=== PATIENT | female | born 1960 | race Caucasian/White ===

== ENCOUNTER 2016-10-21 07:11 | Inpatient (IN) ==
--- NOTE | 2016-10-18 22:29 | Discharge Summary ---
<Aleah Gaspar - Last Filed: 10/21/16 13:12> - Discharge Diagnosis (1) Arthritis of knee, right Priority: Primary Status: Acute (2) Asthma Status: Chronic Qualifiers: Asthma severity: unspecified severity Asthma complication type: uncomplicated Qualified Code(s): J45.909 - Unspecified asthma, uncomplicated (3) Hypertension Status: Chronic Qualifiers: Hypertension type: unspecified secondary hypertension Qualified Code(s): I15.9 - Secondary hypertension, unspecified; I15 - Secondary hypertension (4) Obesity (BMI 30.0-34.9) Status: Chronic (5) Tobacco abuse Status: Chronic - Discharge Medications Prescriptions: OxyCODONE Immed Rel [Roxicodone 5 MG] 5 - 10 mg PO Q6HR PRN #40 tablet PRN Reason: Pain Enoxaparin [Lovenox] 30 mg SQ Q12HR #20 syr Home Medications: Enoxaparin [Lovenox] 30 mg SQ Q12HR #20 syr 10/21/16 [Rx] Esomeprazole Magnesium [Nexium] 20 mg PO DAILY 10/21/16 [History] Losartan [Cozaar] 25 mg PO DAILY 10/21/16 [History] OxyCODONE Immed Rel [Roxicodone 5 MG] 5 - 10 mg PO Q6HR PRN #40 tablet 10/21/16 [Rx] Ranitidine HCl [Zantac] 150 mg PO HS 10/21/16 [History] Tizanidine HCl 2 mg PO DAILY 10/21/16 [History] Allergies/Adverse Reactions: Allergies aspirin Allergy (Verified 10/21/16 08:21) Swelling of Lip/Tongue/Throat ibuprofen [From Motrin] Allergy (Verified 10/21/16 08:21) Swelling of Lip/Tongue/Throat levofloxacin [From Levaquin] Adverse Reaction (Verified 10/21/16 08:21) See Comments rash at IV site Primary care physician: PCP NO - Patient Status Disposition: Home, Self-Care Condition: Good - Discharge Instructions Follow Up With: NO,PCP [Primary Care Provider] - - Hospital Course Hospital course: Ms. Dumont is a 56 year old female - Time Spent with Patient Total time spent providing and/or coordinating discharge services: <Camacho Lo - Last Filed: 10/23/16 06:32> Date of Encounter: 10/23/16 Time of Encounter: 06:31 - Discharge Diagnosis (1) Arthritis of knee, right Priority: Primary Status: Acute (2) Hypertension Priority: Secondary Status: Chronic Qualifiers: Qualified Code(s): I15.9 - Secondary hypertension, unspecified; I15 - Secondary hypertension (3) Tobacco abuse Priority: Secondary Status: Chronic (4) Asthma Priority: Secondary Status: Chronic Qualifiers: Qualified Code(s): J45.909 - Unspecified asthma, uncomplicated (5) Obesity (BMI 30.0-34.9) Priority: Secondary Status: Chronic (6) Acute blood loss anemia Priority: Primary Status: Acute Primary care physician: PCP NO - Patient Status Functional capacity at discharge: uses cane/walker Overall status at discharge: patient is progressing back to baseline - Hospital Course Hospital course: Ms. Dumont is a 56 year old female The patient had an uneventful postoperative course. They received antibiotics and physical therapy and were discharged in stable condition. There will follow -up in the office in 2 weeks. Asymptomatic acute blood loss anemia, discharged - Time Spent with Patient Total time spent providing and/or coordinating discharge services:
[2016-10-21] MEDS ORDERED: Albuterol 2.5 MG/3 ML NEBULIZER ONE (08:03)
[2016-10-21] MEDS ORDERED: Albuterol 2.5 MG/3 ML NEBULIZER IH ONE (08:16)
[2016-10-21] MEDS ORDERED: Lidocaine 1% 20 ML MDV ID ONE (08:16)
[2016-10-21] MEDS ORDERED: CeFAZolin Pre 2,000 MG/100 ML 2,000 MG/100 ML BAG IVPB ONE (08:16)
[2016-10-21] MEDS ORDERED: *HR* Propofol 200 MG/20 ML VIAL IVP ONE ×2 (08:19→08:34)
[2016-10-21] MEDS ORDERED: *HR* FentaNYL (PF) 100 MCG/2 ML VIAL ONE (08:19)
[2016-10-21] MEDS ORDERED: *HR* Midazolam HCl 2 MG/2 ML VIAL ONE (08:19)
[2016-10-21] MEDS ORDERED: Lidocaine -MPF 2% 2 ML VIAL ONE (08:21)
[2016-10-21] MEDS ORDERED: Ondansetron 4 MG/2 ML VIAL ONE (08:21)
[2016-10-21] MEDS ORDERED: Dexamethasone 4 MG/ML VIAL ONE (08:21)
--- NOTE | 2016-10-21 08:24 | Anesthesia Evaluation PreOp ---
Date of Encounter: 10/21/16 Time of Encounter: 08:21 - Past History Planned Operation: r tka Cardiac History: HTN Pulmonary History: Smoker, Asthma [employer] History: Denies Any Significant HX Other Medical History: GERD Anesthesia History: No Prior Anesthetic Complications, Past Anesthesia (gastric bypass, cholecyst, thyroid, hysterect) Alcohol Use: none Drug use: marijuana Medications and Allergies Esomeprazole Magnesium [Nexium] 40 mg PO DAILY 10/21/16 [History] HYDROcodone/Acet 5/325 mg [[place] 5-325 mg] 1 tab PO BID PRN 10/21/16 [History] Losartan [Cozaar] 25 mg PO DAILY 10/21/16 [History] Ranitidine HCl [Zantac] 150 mg PO HS 10/21/16 [History] Tizanidine HCl 4 mg PO DAILY 10/21/16 [History] Allergies aspirin Allergy (Verified 10/21/16 08:21) Swelling of Lip/Tongue/Throat ibuprofen [From Motrin] Allergy (Verified 10/21/16 08:21) Swelling of Lip/Tongue/Throat levofloxacin [From Levaquin] Adverse Reaction (Verified 10/21/16 08:21) See Comments rash at IV site - Meds/Allergy Pre-op Review Medications Reviewed: Yes Allergies Reviewed: Yes Beta Blockers on Current Med List: No Anesthesia Results - Labs Laboratory Tests 10/13/16 10/13/16 10/13/16 09:45 09:45 09:45 Hgb 12.5 Hct 38.0 Plt Count 350 PT 9.7 INR 0.9 APTT 30.6 Sodium 139 Potassium 4.6 H Creatinine 0.71 - Imaging EKG: report reviewed (sr [id number]) Anesthesia Exam O2 Sat Height 1.78 m Height 1.78 m Weight 105.233 kg Weight 105.233 kg O2 Sat by Pulse Oximetry 97 Vital Signs Temp Pulse Resp BP Pulse Ox 98.6 F 68 18 130/78 97 10/21/16 07:36 10/21/16 07:36 10/21/16 07:36 10/21/16 07:36 10/21/16 07:36 Height: 1.78 Weight: 105 NPO (# of Hours): >8 - HEENT Pupil (Motor): Pupils equal, EOMI Mallampati: II Teeth: Poor dentition Oral Opening: Greater than 3 - [employer] LOC: Oriented [employer] Motor: Normal RUE, Normal LUE, Normal RLE, Normal LLE, Normal Face [employer] Sensory: Normal: RUE, LUE, RLE, LLE, Face - Cardiac Rhythm: Regular Murmur: None - Pulmonary Breath Sounds: bilateral Clear Respiratory Effort: Symmetrical Anesthesia Assess/Plan ASA Score: 2 Modified Karey Scale for Level of Consciousness: Cooperative, oriented, and tranquil Anesthetic Plan: General, Regional Monitoring Plan: Standard Monitors Recovery Plan: PACU
[2016-10-21] MEDS ORDERED: Ringers Solution, Lactated 1,000 ML IVC SCH ×2 (08:30→12:50)
[2016-10-21] MEDS ORDERED: Bupivacaine/Clonidine Syringe 1 EACH SYRINGE ONE (08:42)
--- NOTE | 2016-10-21 08:46 | History & Physical Report ---
Date of Encounter: 10/21/16 Time of Encounter: 08:46 24 Hour HP Update - Instructions Instructions: If the History and Physical is less than 30 days old and was completed prior to A.M. admission and or procedure and has NOT been updated on calendar day of procedure please complete this update prior to performing procedure. - Update Patient reports changes in Medical Condition: No Changes in assessment/condition: No Changes in Medication: No Preop tests/diagnostics Reviewed: Yes Surgery Remains Indicated: Yes Consent for Planned Operative Procedure(s) Verified: Yes - Pre-Operative Checklist Preoperative Checklist Indicated: No Prophylactic Antibiotic Ordered: Yes Is VTE Prophylaxis Indicated?: Yes
--- NOTE | 2016-10-21 09:22 | Anesthesia Procedures ---
Date of Encounter: 10/21/16 Time of Encounter: 09:10 Procedures: Anesthesia - Nerve Block Procedure Date: 10/21/16 Time: 09:10 Allergies/Adv Reactions: Allergies Allergy/AdvReac Type Severity Reaction Status Date / Time aspirin Allergy Swelling Verified 10/21/16 08:21 of Lip/Tongue/Throat ibuprofen [From Motrin] Allergy Swelling Verified 10/21/16 08:21 of Lip/Tongue/Throat levofloxacin [From Levaquin] AdvReac See Verified 10/21/16 08:21 Comments Pre-op Diagnosis: Right Knee Arthritis Surgical Procedure: Right Total Knee Replacement Checklist: Correct Patient Identifier, Correct procedure, History checked Correct side: Right Blood Thinner: No Monitor Applied: EKG, BP, Pulse Oximetry Supplemental Oxygen via Nasal Cannula (L/min): 2 Sedation: Versed (mg): 2 Sedation: Fentanyl (mcg): 100 Indication: Post Op Analgesia Pre-op Neuro Deficits: No Block Type: Femoral Catheter placed: No Sterile Technique: Yes Ultrasound used: Yes Anatomy identified: Yes Visual spread of Local: Yes Neuro Stimulation: Yes Nerve Stimulator Range: 0.2 - 0.4 mA Blood on Needle Aspiration: No Smooth Injection of Local: Yes Pain with Injection of Local: No Prep: Chlorhexadine Needle: 22 x 50 mm Stimuplex Local: 0.25% Bupivicaine w/Clonidine 20 mcg/cc Volume (cc): 40mL Number of Attempts: 1 Complications: None/effective block Vitals: See nursing documentation. VSS throughout. Patient tolerated procedure well. Comments: Verbal order Dr Lo for post op pain management.
[2016-10-21] MEDS ORDERED: Naloxone 0.4 MG/ML INJ IVP PRN ×2 (09:24→12:50)
[2016-10-21] MEDS ORDERED: *HR* Meperidine 25 MG/ML SYRINGE IVP PRN (09:24)
[2016-10-21] MEDS ORDERED: *HR* Promethazine 25 MG/ML VIAL IVP PRN (09:24)
[2016-10-21] MEDS ORDERED: Ondansetron 4 MG/2 ML VIAL IVP PRN ×2 (09:24→12:50)
[2016-10-21] MEDS ORDERED: *HR* HYDROmorphone 2 MG/ML SYRINGE ONE (10:36)
[2016-10-21] MEDS: *HR* HYDROmorphone (PF) 1 MG/ML SYRINGE IVP PRN ×6 (10:52→23:56)
--- NOTE | 2016-10-21 11:10 | Orthopedic Operative Note ---
Date of procedure: 10/21/16 Pre-op diagnosis: Right knee arthritis Post-op diagnosis: same Procedure: Procedure: Right Total knee replacement Estimated blood loss: 400 cc Hardware: Arthrex Femur: 7 Tibia: 6 PS insert: 14 Patella:40 Exam Under anesthesia: Full Motion and no instability Procedural Notes: Grade 4 arthritic changes medial 3 arthritic changes patellofemoral joint Operative procedure: The patient was brought to the operating room and placed on the operating room table. After general anesthesia was administered the operative knee was examined. Findings were noted in the exam under anesthesia. The operative extremity was prepped and draped in sterile surgical fashion. The patient received IV antibiotics prior to skin incision. A standard midline incision was made centered over the patella. The incision was made through the skin and subcutaneous tissue. A medial parapatellar tendon approach was performed. Care was taken to preserve tissue along the medial aspect of the patella. And to protect the patella tendon. The deep MCL was released off the medial tibia. The infra patella fat pad was excised. Knee was brought into flexion. Patient was noted to have grade 4 arthritic changes medial compartment grade 3 arthritic changes at the femoral joint. The entry hole was made for the intramedullary femoral guide. The guide was seated in 6 degrees of valgus. Anterior cut was made followed by the distal cut. The ACL the PCL the medial and the lateral menisci were excised. The tibia was subluxed forward. The entry hole was made for the intramedullary tibial guide. Guide was seated to resect 2 mm off the more abnormal side. The knee was brought into flexion the distal femur was sized 7. The femoral guide was seated , the anterior cut was made followed by the posterior condylar cut, followed by the chamfer cuts. The finishing guide was seated the box cut was made and the lug holes were drilled. The tibia was sized 6, the tibial tray was seated and prepared with the large drill followed by the fin cutter. Trial reduction revealed full extension no varus valgus instability with the appropriate 14 PS Aminta. The patella was everted and cut was made at the level of the insertion of the quadriceps and patella tendon. The patella was sized 40 the guide was seated and the lug holes are drilled. Trial reduction revealed excellent patella tracking. All trial components were removed all bony surfaces were irrigated. The tibia was cemented first followed by the femur. The 14 PS Aminta was seated and the knee was brought into full extension. The patella was cemented and held in place with the patellar holding clamp. After the cement had hardened, the knee sat for 2 minutes with a Betadine saline solution. The knee was then irrigated out with 2 L of pulse irrigation. The extensor mechanism was closed with #2 FiberWire suture and #2 PDS suture. The subcutaneous tissue was then irrigated and closed deep with #1 PDS suture superficially with 0 PDS suture and skin was closed with skin nadya. The patient was then placed in a sterile dressing and a postoperative brace extubated and transferred to recovery room in stable condition. Anesthesia: ANJELICA Surgeon: Camacho Lo Pizzamaker: Aleah Gaspar Condition: stable Disposition: PACU
[2016-10-21] MEDS ORDERED: Acetaminophen IV 1,000 MG/100 ML INFUS..BTL IVPB ONE (11:20)
[2016-10-21] MEDS ORDERED: *HR* Morphine 2 MG/ML SYRINGE IVP PRN (11:30)
[2016-10-21] MEDS: *HR* Morphine 2 MG/ML SYRINGE IVP PRN ×2 (12:01→12:06)
--- NOTE | 2016-10-21 12:32 | Anesthesia Evaluation Post Op ---
Date of Encounter: 10/21/16 Time of Encounter: 12:31 - Vital Signs Vital Signs: Vital Signs/O2 Sat/Glucose, Most Current Temp Pulse Resp BP Pulse Ox 10/21/16 12:15 97.2 F L 78 18 112/67 100 10/21/16 12:05 75 18 121/86 100 10/21/16 11:55 74 18 118/87 100 10/21/16 11:45 97.2 F L 72 18 107/63 100 10/21/16 11:35 73 18 118/76 100 10/21/16 11:25 67 18 117/85 100 10/21/16 11:15 97.2 F L 67 18 117/75 100 10/21/16 11:05 79 16 109/66 100 10/21/16 10:55 96 16 112/86 100 10/21/16 10:45 97.3 F L 90 16 111/89 99 10/21/16 09:30 68 16 112/79 98 10/21/16 09:15 74 16 120/80 99 10/21/16 09:00 75 16 116/80 97 - Lungs Lungs: Clear Ascult./Percussion - Airway Airway: Non-obstructed - Cardiovascular Regular Rate - Mental Status Mental Status: Alert & Oriented, Answers Appropriately - Pain Pain Scale: 2 Pain Scale used: [place] (Faces) - Nausea Vomiting Nausea Vomiting: Not Present - Hydration Hydration: Ice chips - Discharge PostOp Status: Transfer Patient to floor
[2016-10-21] MEDS ORDERED: MOM Conc 10 ML UD.LIQ PO PRN (12:50)
[2016-10-21] MEDS ORDERED: *HR* OxyCODONE Immed Rel 5 MG TABLET PO PRN (12:50)
[2016-10-21] MEDS ORDERED: Sennosides 8.6 MG TABLET PO PRN (12:50)
[2016-10-21] MEDS ORDERED: Temazepam 15 MG CAPSULE PO PRN (12:50)
[2016-10-21] MEDS: ceFAZolin 2,000 MG in D5% in Water 100 ML IVPB SCH ×2 (16:46→23:45)
[2016-10-21] MEDS: *HR* OxyCODONE Immed Rel 5 MG TABLET PO PRN ×2 (16:53→20:56)
[2016-10-21] MEDS: *HR* Enoxaparin 30 MG/0.3 ML SYRINGE SQ SCH (16:53)
[2016-10-21] MEDS ORDERED: *HR* Enoxaparin 30 MG/0.3 ML SYRINGE SQ SCH (18:00)
[2016-10-21] MEDS: Famotidine 20 MG TABLET PO SCH (20:56)
[2016-10-22] MEDS: *HR* Enoxaparin 30 MG/0.3 ML SYRINGE SQ SCH ×2 (05:09→17:51)
[2016-10-22] MEDS: *HR* OxyCODONE Immed Rel 5 MG TABLET PO PRN ×5 (05:10→21:55)
[2016-10-22 06:01] LABS: Hematocrit 27.7 % (35.3-44.9); Hemoglobin 9.1 g/dL (11.5-15.4)
[2016-10-22] MEDS: *HR* HYDROmorphone (PF) 1 MG/ML SYRINGE IVP PRN ×4 (06:11→20:12)
[2016-10-22 06:49] LABS: BUN/Creatinine Ratio 14 (6-26); Blood Urea Nitrogen 9 mg/dL (7-20); Calcium 8.5 mg/dL (8.6-10.8); Carbon Dioxide 22 mEq/L (19-29); Chloride 105 mEq/L (98-109); Glucose 119 mg/dL (70-99); Osmolality,Calculated 280 (280-300); Potassium 3.9 mEq/L (3.5-4.5); Sodium 135 mEq/L (136-145); eGFR For African Americans > 60 (> 60); eGFR For Non-African Americans > 60 (> 60)
--- NOTE | 2016-10-22 08:11 | Orthopedics Progress Note ---
Date of Encounter: 10/22/16 Time of Encounter: 08:10 - Assessment and Plan (1) Arthritis of knee, right Current Visit: Yes Status: Acute (2) Hypertension Current Visit: Yes Status: Chronic Qualifiers: Qualified Code(s): I15.9 - Secondary hypertension, unspecified; I15 - Secondary hypertension (3) Tobacco abuse Current Visit: Yes Status: Chronic (4) Asthma Current Visit: Yes Status: Chronic Qualifiers: Qualified Code(s): J45.909 - Unspecified asthma, uncomplicated (5) Obesity (BMI 30.0-34.9) Current Visit: Yes Status: Chronic (6) Acute blood loss anemia Current Visit: Yes Status: Acute Subjective Interval history: Patient was seen this morning doing well without complaints. Afebrile vital signs stable. Operative extremity: Neurovascularly intact Dressing clean dry and intact Calves nontender Assessment and plan: Continue with postoperative care hb 9.1 Objective Vital signs: Vital Signs Temp Pulse Resp BP Pulse Ox 10/22/16 07:05 99 F 81 13 94/63 97 10/22/16 06:56 98 F 91 16 114/76 99 10/22/16 06:07 98.1 F 84 14 118/72 99 10/22/16 00:05 98.1 F 80 17 124/75 100 10/21/16 23:54 105/74 10/21/16 20:00 98.6 F 87 17 138/91 97 10/21/16 14:06 98.3 F 82 16 110/79 97 10/21/16 13:36 98.6 F 75 16 110/81 96 10/21/16 13:00 94 L 10/21/16 12:53 98.3 F 76 14 120/80 98 10/21/16 12:35 97.2 F L 69 18 112/78 99 10/21/16 12:25 78 18 111/79 99 10/21/16 12:15 97.2 F L 78 18 112/67 100 10/21/16 12:05 75 18 121/86 100 10/21/16 11:55 74 18 118/87 100 10/21/16 11:45 97.2 F L 72 18 107/63 100 10/21/16 11:35 73 18 118/76 100 10/21/16 11:25 67 18 117/85 100 10/21/16 11:15 97.2 F L 67 18 117/75 100 10/21/16 11:05 79 16 109/66 100 10/21/16 10:55 96 16 112/86 100 10/21/16 10:45 97.3 F L 90 16 111/89 99 10/21/16 09:30 68 16 112/79 98 10/21/16 09:15 74 16 120/80 99 10/21/16 09:00 75 16 116/80 97 10/21/16 08:25 98.6 F 68 18 130/78 97 Intake and Output 10/21/16 10/22/16 10/22/16 23:59 07:59 15:59 Intake Total 400 / 400 Output Total 1000 / 1000 Balance -600 / -600 Intake: IV Fluids 100 / 100 Ancef 2,000 MG In 100 / 100 Dextrose 5% 100 ML @ 200 mls/hr IVPB Q8HR [facility] Rx#: [id number] Oral 300 / 300 Output: Urine 1000 / 1000 - Labs CBC & BMP: 10/22/16 04:20 10/22/16 04:20 Labs: Abnormal lab results Hgb 9.1 g/dL (11.5-15.4) L 10/22/16 04:20 Hct 27.7 % (35.3-44.9) L 10/22/16 04:20 Sodium 135 mEq/L (136-145) L 10/22/16 04:20 Glucose 119 mg/dL (70-99) H 10/22/16 04:20 Calcium 8.5 mg/dL (8.6-10.8) L 10/22/16 04:20 - VTE Documentation of Mechanical Device: Venous foot pump, device Consult Discharge Plan - Plan Referrals: NO,PCP [Primary Care Provider] - Prescriptions: Enoxaparin [Lovenox] 30 mg SQ Q12HR #20 syr OxyCODONE Immed Rel [Roxicodone 5 MG] 5 - 10 mg PO Q6HR PRN #40 tablet PRN Reason: Pain
[2016-10-22] MEDS ORDERED: tiZANidine 4 MG TABLET PO SCH (09:00)
[2016-10-22] MEDS: Acetaminophen 325 MG TABLET PO PRN (19:05)
[2016-10-22] MEDS ORDERED: Acetaminophen IV 1,000 MG/100 ML INFUS..BTL IVPB PRN (19:42)
[2016-10-22] MEDS: Famotidine 20 MG TABLET PO SCH (20:11)
[2016-10-22] MEDS: Gabapentin 300 MG CAPSULE PO SCH (21:01)
[2016-10-23] MEDS: *HR* OxyCODONE Immed Rel 5 MG TABLET PO PRN ×5 (03:56→22:23)
[2016-10-23 05:05] LABS: Hematocrit 26.8 % (35.3-44.9); Hemoglobin 8.6 g/dL (11.5-15.4)
[2016-10-23 05:22] LABS: BUN/Creatinine Ratio 13 (6-26); Blood Urea Nitrogen 9 mg/dL (7-20); Calcium 8.7 mg/dL (8.6-10.8); Carbon Dioxide 25 mEq/L (19-29); Chloride 105 mEq/L (98-109); Glucose 111 mg/dL (70-99); Osmolality,Calculated 283 (280-300); Sodium 137 mEq/L (136-145); eGFR For African Americans > 60 (> 60); eGFR For Non-African Americans > 60 (> 60)
[2016-10-23 05:24] LABS: Potassium 5.1 mEq/L (3.5-4.5)
--- NOTE | 2016-10-23 06:32 | Orthopedics Progress Note ---
Date of Encounter: 10/23/16 Time of Encounter: 06:32 - Assessment and Plan (1) Arthritis of knee, right Current Visit: Yes Status: Acute (2) Hypertension Current Visit: Yes Status: Chronic Qualifiers: Qualified Code(s): I15.9 - Secondary hypertension, unspecified; I15 - Secondary hypertension (3) Tobacco abuse Current Visit: Yes Status: Chronic (4) Asthma Current Visit: Yes Status: Chronic Qualifiers: Qualified Code(s): J45.909 - Unspecified asthma, uncomplicated (5) Obesity (BMI 30.0-34.9) Current Visit: Yes Status: Chronic (6) Acute blood loss anemia Current Visit: Yes Status: Acute Subjective Interval history: Patient was seen this morning doing well without complaints. Afebrile vital signs stable. Operative extremity: Neurovascularly intact Dressing clean dry and intact Calves nontender Assessment and plan: Continue with postoperative care hct 26 asymptomatic, discharged today Objective Vital signs: Vital Signs Temp Pulse Resp BP Pulse Ox 10/23/16 00:00 98.9 F 90 17 135/75 96 10/22/16 20:00 99.0 F 107 18 156/91 97 10/22/16 14:51 98.3 F 87 16 98/67 97 10/22/16 11:14 98.1 F 81 18 93/64 96 10/22/16 07:05 99 F 81 13 94/63 97 10/22/16 06:56 98 F 91 16 114/76 99 Intake and Output 10/22/16 10/22/16 10/23/16 15:59 23:59 07:59 Intake Total 750 / 750 400 / 400 Output Total 750 / 750 450 / 450 550 / 550 Balance 0 / 0 -450 / -450 -150 / -150 Intake: Oral 750 / 750 400 / 400 Output: Urine 750 / 750 450 / 450 550 / 550 - Labs CBC & BMP: 10/23/16 04:20 10/23/16 04:20 Labs: Abnormal lab results Hgb 8.6 g/dL (11.5-15.4) L 10/23/16 04:20 Hct 26.8 % (35.3-44.9) L 10/23/16 04:20 Potassium 5.1 mEq/L (3.5-4.5) H D 10/23/16 04:20 Glucose 111 mg/dL (70-99) H 10/23/16 04:20 - VTE Documentation of Mechanical Device: Venous foot pump, device Consult Discharge Plan - Plan Referrals: NO,PCP [Primary Care Provider] - Prescriptions: Enoxaparin [Lovenox] 30 mg SQ Q12HR #20 syr OxyCODONE Immed Rel [Roxicodone 5 MG] 5 - 10 mg PO Q6HR PRN #40 tablet PRN Reason: Pain
[2016-10-23] MEDS: *HR* Enoxaparin 30 MG/0.3 ML SYRINGE SQ SCH ×2 (06:39→17:55)
[2016-10-23] MEDS: *HR* HYDROmorphone (PF) 1 MG/ML SYRINGE IVP PRN ×4 (09:28→23:52)
[2016-10-23] MEDS: Famotidine 20 MG TABLET PO SCH (19:26)
[2016-10-23] MEDS: Gabapentin 300 MG CAPSULE PO SCH (19:26)
[2016-10-24] MEDS: *HR* OxyCODONE Immed Rel 5 MG TABLET PO PRN ×5 (04:30→22:15)
[2016-10-24] MEDS: *HR* Enoxaparin 30 MG/0.3 ML SYRINGE SQ SCH ×2 (07:43→16:57)
[2016-10-24 12:41] LABS: Hematocrit 23.6 % (35.3-44.9); Hemoglobin 7.6 g/dL (11.5-15.4)
[2016-10-24 12:51] LABS: BUN/Creatinine Ratio 12 (6-26); Blood Urea Nitrogen 8 mg/dL (7-20); Calcium 8.6 mg/dL (8.6-10.8); Carbon Dioxide 25 mEq/L (19-29); Chloride 100 mEq/L (98-109); Glucose 119 mg/dL (70-99); Osmolality,Calculated 275 (280-300); Potassium 4.3 mEq/L (3.5-4.5); Sodium 133 mEq/L (136-145); eGFR For African Americans > 60 (> 60); eGFR For Non-African Americans > 60 (> 60)
--- NOTE | 2016-10-24 13:55 | Orthopedics Progress Note ---
Date of Encounter: 10/24/16 Time of Encounter: 13:52 Subjective Principal diagnosis: Status post right knee arthroplasty Interval history: Patient was comfortable with mild discomfort in quadriceps Right lower extremity: Incision is clean dry and intact. Calves are soft and nontender, neurovascularly intact distally Hg 7.6 Will transfuse 1 U PRBC check h/h/ 2 hrs after, if stable [facility] Objective Vital signs: Vital Signs Temp Pulse Resp BP Pulse Ox 10/24/16 12:44 98.3 F 63 16 118/76 94 L 10/24/16 06:26 98.5 F 110 18 104/68 94 L 10/23/16 23:39 98.9 F 122 19 106/64 92 L 10/23/16 20:45 98.1 F 100 15 109/51 97 10/23/16 15:11 98.8 F 106 16 124/77 96 Intake and Output 10/23/16 10/24/16 10/24/16 23:59 07:59 15:59 Intake Total 400 / 400 Output Total 1000 / 1000 Balance -600 / -600 Intake: Oral 400 / 400 Output: Urine 1000 / 1000 Other: # Voids 1 Incision: clean and dry - Labs CBC & BMP: 10/24/16 12:24 10/24/16 12:24 Labs: Abnormal lab results Hgb 7.6 g/dL (11.5-15.4) L 10/24/16 12:24 Hct 23.6 % (35.3-44.9) L 10/24/16 12:24 Sodium 133 mEq/L (136-145) L 10/24/16 12:24 Glucose 119 mg/dL (70-99) H 10/24/16 12:24 Calculated Osmolality 275 (280-300) L 10/24/16 12:24 - VTE Documentation of Mechanical Device: Venous foot pump, device Consult Discharge Plan - Plan Referrals: NO,PCP [Primary Care Provider] - Prescriptions: OxyCODONE Immed Rel [Roxicodone 5 MG] 5 - 10 mg PO Q6HR PRN #40 tablet PRN Reason: Pain Enoxaparin [Lovenox] 30 mg SQ Q12HR #20 syr
[2016-10-24] MEDS: Acetaminophen 325 MG TABLET PO PRN (15:32)
[2016-10-24] MEDS ORDERED: 0.9 % Sodium Chloride 250 ML ONE (20:28)
[2016-10-24] MEDS: Famotidine 20 MG TABLET PO SCH (21:12)
[2016-10-24] MEDS: Gabapentin 300 MG CAPSULE PO SCH (21:12)
[2016-10-25] MEDS: *HR* OxyCODONE Immed Rel 5 MG TABLET PO PRN ×5 (02:29→18:51)
[2016-10-25 03:45] LABS: Hematocrit 24.2 % (35.3-44.9); Hemoglobin 7.9 g/dL (11.5-15.4)
[2016-10-25] MEDS: *HR* Enoxaparin 30 MG/0.3 ML SYRINGE SQ SCH (06:10)
[2016-10-25 10:56] LABS: Hematocrit 24.2 % (35.3-44.9); Hemoglobin 7.9 g/dL (11.5-15.4)
[2016-10-25] MEDS ORDERED: 0.9 % Sodium Chloride 250 ML ONE (13:12)
[2016-10-25 16:47] VITALS: BP 113/77
[2016-10-25 18:32] LABS: Hematocrit 27.6 % (35.3-44.9); Hemoglobin 8.9 g/dL (11.5-15.4)
--- NOTE | 2016-10-26 09:49 | Venous Imaging Report ---
LE Venous Duplex Patient Name:Saida Dumont Order Number:[id number] Procedure Date:10/25/2016 Date:8Age:56 yrs Gender:Female Location:[facility] Room #: 3NE27 Director Of Student Financial Services:Gemma Shipley RVT Referring MD:Blaine Ontiveros MD weaving supervisor:None Reading MD:Rich Cardenas MD , FACS Primary Indications:DVT evaluation post op knee replacement Secondary Indications: Risk Factors Yes/No Recent Surgery Yes Anticoagulants Yes Impressions: Right lower extremity: normal superficial and deep exam. Left lower extremity: normal contralateral exam. Findings Venous Duplex Results: Right: Venous imaging of the lower extremity reveals full patency and normal vessel compressibility of the right distal iliac, right common femoral, right superficial femoral, right popliteal, right posterior tibial, right peroneal, right great saphenous and right lesser saphenous. Doppler signals in the evaluated veins were normal. Left: Venous imaging of the lower extremity reveals full patency and normal vessel compressibility of the left common femoral. Doppler signals in the evaluated veins were normal. Prior Study: No prior study available for comparison. Lower Extremity Venous Duplex Side Vein Compress Spontaneous Flow Augment Diameter (cm) Depth (cm) Right Distal Iliac Normal Yes Phasic Yes Right Common Femoral Normal Yes Phasic Yes Right Superficial Femoral Normal Yes Phasic Yes Right Popliteal Normal Yes Phasic Yes Right Posterior Tibial Normal Yes Phasic Yes Right Peroneal Normal Yes Phasic Yes Right Great Saphenous Normal Yes Phasic Yes Right Lesser Saphenous Normal Yes Phasic Yes Left Common Femoral Normal Yes Phasic Yes Updated by Rich Cardenas MD, FACS on 10/26/2016 9:43:13 AM Rich Cardenas MD electronically signed on 10/26/2016 9:43:37 AM with status of Final
== END 2016-10-25 07:40 | disposition home or self-care (01) | DRG 470 ==
LOC: SAMDAY 07:11 → 3NENU 12:50
PROVIDERS: ADMIT Orthopaedic Surgery; ATTEND Orthopaedic Surgery